=== PATIENT | female | born 1990 | race Caucasian/White ===

== ENCOUNTER 2017-03-07 23:49 | Inpatient (IN) ==
[2017-03-08] MEDS ORDERED: LR 1,000 ML IV SCH (00:24)
[2017-03-08] MEDS ORDERED: AMPICILLIN 2 GM/NS 2 GM/100 ML IVPB IV ONE (00:24)
[2017-03-08] MEDS ORDERED: ZOFRAN IV PRN (00:24)
[2017-03-08] MEDS ORDERED: PITOCIN 30 UNITS/LR 30 UNITS/500 ML IV.SOLN IV SCH (00:24)
[2017-03-08] MEDS ORDERED: PEPCID PO ONE (00:24)
[2017-03-08] MEDS ORDERED: STADOL IV PRN (00:24)
[2017-03-08] MEDS ORDERED: KEFZOL 1 GM/D5W 1 GM/50 ML IVPB IV PRN (00:24)
[2017-03-08] MEDS ORDERED: REGLAN PO ONE (00:24)
[2017-03-08] MEDS ORDERED: PEPCID PO PRN (00:24)
[2017-03-08] MEDS ORDERED: TYLENOL PO PRN (00:24)
[2017-03-08] MEDS ORDERED: PEPCID IV PRN (00:24)
[2017-03-08] MEDS ORDERED: SODIUM CHLORIDE 0.9% INJ SCH (00:30)
[2017-03-08 00:51] LABS: MANUAL DIFF NEEDED? NO
[2017-03-08 00:51] LABS: URINE SOURCE VOIDED
[2017-03-08] MEDS ORDERED: NAROPIN 0.2% INJ ONE (00:59)
[2017-03-08] MEDS ORDERED: FENTANYL-BUPIV-NS 2 MCG-0.1% 200 ML EPIDURAL SCH (01:00)
[2017-03-08] MEDS ORDERED: FENTANYL INJ ONE (01:01)
[2017-03-08 01:09] LABS: BASO% 0.1 % (0.0-0.8); EOS# 0.11 X1000 (0.0-0.7); EOS% 0.7 % (0.0-10.0); HEMATOCRIT 37.1 % (37.0-47.0); HEMOGLOBIN 12.9 g/dL (12.0-16.0); IMM GRAN# 0.08 X1000 (0.0-0.04); IMM GRAN% 0.5 % (0.0-0.5); LYMPH% 18.1 % (20.5-51.1); MCH 32.6 PG (27-31); MCHC 34.8 g/dL (33-37); MCV 93.7 FL (81-99); MONO# 1.09 X1000 (0.11-0.59); MONO% 7.3 % (1.7-9.3); MPV 9.8 FL (7.4-10.4); NEUT% 73.3 % (42.2-75.2); PLT 258 X1000 (130-400); RBC 3.96 XMIL (4.2-5.4)
[2017-03-08 01:13] LABS: UR AMPHETAMINES QUAL PRESUMPTIVE POSITIVE (NONE DETECT); UR BARBITUATES QUAL NONE DETECTED (NONE DETECT); UR BENZODIAZEPIN QUAL NONE DETECTED (NONE DETECT); UR CANNABINOIDS QUAL NONE DETECTED (NONE DETECT); UR COCAINE QUAL NONE DETECTED (NONE DETECT); UR MDMA QUAL NONE DETECTED (NONE DETECT); UR METHADONE QUAL NONE DETECTED (NONE DETECT); UR METHAMPHETAMINE QUAL PRESUMPTIVE POSITIVE (NONE DETECT); UR OPIATES QUAL NONE DETECTED (NONE DETECT); UR OXYCODONE QUAL NONE DETECTED (NONE DETECT); UR PCP QUAL NONE DETECTED (NONE DETECT); UR TCA QUAL NONE DETECTED (NONE DETECT)
[2017-03-08 01:25] LABS: BILIRUBIN URINE NEGATIVE (NEGATIVE); BLOOD URINE 1+ (NEGATIVE); CLARITY CLEAR (CLEAR); COLOR YELLOW; GLUCOSE URINE NEGATIVE (NEGATIVE); LEUKOCYTES URINE 1+ (NEGATIVE); NITRITE URINE NEGATIVE (NEGATIVE); PROTEIN URINE NEGATIVE (NEGATIVE); UROBILINOGEN URINE NORMAL
[2017-03-08] MEDS ORDERED: PITOCIN 20 UNITS/LR 20 UNITS/1,000 ML IV.SOLN IV SCH (02:49)
[2017-03-08] MEDS ORDERED: BENADRYL IV PRN (02:49)
[2017-03-08] MEDS ORDERED: AMBIEN PO PRN (02:49)
[2017-03-08] MEDS ORDERED: NORCO-5 PO PRN (02:49)
[2017-03-08] MEDS ORDERED: HYDROXYZINE IM PRN (02:49)
[2017-03-08] MEDS ORDERED: XYLOCAINE-MPF 1% INJ PRN (02:49)
[2017-03-08] MEDS ORDERED: BOOSTRIX VACCINE IM ONE (02:49)
[2017-03-08] MEDS ORDERED: MINERAL OIL PO PRN (02:49)
[2017-03-08] MEDS ORDERED: HYDROXYZINE PO PRN (02:49)
[2017-03-08] MEDS ORDERED: M-M-R II VACCINE SUBQ ONE (02:49)
[2017-03-08] MEDS ORDERED: PITOCIN 30 UNITS/LR 30 UNITS/500 ML IV.SOLN IV ONE (02:49)
[2017-03-08] MEDS ORDERED: CYTOTEC PO PRN (02:49)
[2017-03-08] MEDS ORDERED: PITOCIN IM PRN (02:49)
[2017-03-08] MEDS ORDERED: PERI MEDS (DERMOPLAST/NUPERCAINAL/TUCKS) MISC PRN (02:49)
[2017-03-08] MEDS ORDERED: BENADRYL PO PRN (02:49)
[2017-03-08] MEDS ORDERED: AMPICILLIN 1 GM/NS 1 GM/50 ML IVPB IV SCH (04:26)
[2017-03-08] MEDS: NORCO-10 PO PRN ×2 (09:03→19:26)
[2017-03-08] MEDS: MOTRIN PO PRN ×2 (09:03→19:26)
[2017-03-08] MEDS ORDERED: NICODERM PATCH TD SCH (10:30)
[2017-03-08 20:01] VITALS: BP 120/87
[2017-03-08] MEDS ORDERED: PERICOLACE PO SCH (21:00)
--- NOTE | 2017-03-09 02:13 | OPERATIVE NOTE ---
PROCEDURE DATE: 03/08/2017 DELIVERY NOTE: The patient underwent sterile controlled spontaneous vaginal delivery of a viable male infant. Weight and Apgars currently unavailable. No nuchal, no dystocia. Cord doubly clamped and cut and infant was handed off. The placenta delivered spontaneously intact. Uterus, cervix, and vagina explored. No lacerations noted. ESTIMATED BLOOD LOSS: 300 mL. COMPLICATIONS: None. cc: Kamille Beasley MD
== END 2017-03-09 08:13 | disposition left against medical advice (07) ==
LOC: P.OPLD 23:49 → P.LD 23:50 → P.WC 03-08 12:35
PROVIDERS: ADMIT Obstetrics & Gynecology; ATTEND Obstetrics & Gynecology